=== PATIENT | male | born 2000 | race Caucasian/White ===

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

== ENCOUNTER 2023-10-24 13:40 | Emergency (ER) | payer BC ==
[2023-10-24 14:05] VITALS: BP 110/59; PULSE 87
[2023-10-24] MEDS ORDERED: Amoxicillin 500 MG Cap ONE (14:45)
== END 2023-10-24 14:56 | disposition home or self-care (01) ==
LOC: LB.ED 13:40
DX: J02.0 Streptococcal pharyngitis (principal)
CPT/HCPCS: 87651-QW; 99283; A9270-GY